=== PATIENT | male | born 1935 | race Caucasian/White ===

== ENCOUNTER → 2017-02-09 | Outpatient (CLI) | payer MEDICARE, OTHER ==
[~2017-02-09] VITALS: Ht 162.6 cm; Wt 77.6 kg
[~2017-02-09] MED LIST: ASPI325T28 PO; ATEN25TA PO; DOCU10CA PO; DULC10SU2 PR; FLUT1LOT; LIDOCAINE 2% INJ 100 MG/5 ML SDV (FOR ANES.) As Ordered ONE; LISI10TA4 PO; MAGN1TAB25 PO; MAGN200T3 PO; MILKSUS PO; NEUR100C PO; NORV5TAB PO; NS 1,000 ML IV SCH; PRAV40TA PO; PROPOFOL 200 MG/20 ML VIAL As Ordered ONE; PROS5TAB PO; PROT1TAB2 PO; RANI150C PO; REFR0.5D8 OP; SALI0.653; SENO8.6T2 PO; TYLE325T5 PO; ZOCO20TA PO; fentaNYL 100 MCG/2 ML INJECTION (J3010) As Ordered ONE
--- NOTE | 2017-02-09 10:42 | ROOR ---
Patient Name: Mayuri Wright Procedure Date: 02/09/2017 10:27 AM Date of : 1935 Age: 82 Room: [facility] Gender: Male Note Status: Finalized Procedure: Upper GI endoscopy + Biopsies Indications: Abnormal CT of the GI tract, Weight loss Providers: Dakota Hampton MD Referring MD: STEPHEN MICHAEL MD Requesting Provider: Medicines: Monitored Anesthesia Care Complications: No immediate complications. Procedure: Pre-Anesthesia Assessment: - The heart rate, respiratory rate, oxygen saturations, blood pressure, adequacy of pulmonary ventilation, and response to care were monitored throughout the procedure. The Endoscope was introduced through the mouth, and advanced to the second part of duodenum. The upper GI endoscopy was accomplished without difficulty. The patient tolerated the procedure well. Findings: The Z-line was regular and was found 35 cm from the incisors. Multiple biopsies were obtained with cold forceps for evaluation to rule out Jennings's Esophagus randomly at the gastroesophageal junction. A large hiatal hernia was present. No other significant abnormalities were identified in a careful examination of the stomach. The exam of the duodenum was otherwise normal. Impression: - Z-line regular, 35 cm from the incisors. - Large hiatal hernia. - Multiple biopsies were obtained at the gastroesophageal junction. - The examination was otherwise normal. Recommendation: - Patient has a contact number available for emergencies. The signs and symptoms of potential delayed complications were discussed with the patient. Return to normal activities tomorrow. Written discharge instructions were provided to the patient. - High fiber diet. - Discharge patient to home. - Continue present medications. - Follow an antireflux regimen. - Return to referring physician. - The findings and recommendations were discussed with the patient's family. Dakota Hampton MD Dakota Hampton MD 02/09/2017 10:42:16 AM This report has been signed electronically. Number of Addenda: 0 Note Initiated On: 02/09/2017 10:27 AM Estimated Blood Loss: Estimated blood loss: none.
[2017-02-09 11:05] VITALS: BP 147/79
== END | disposition home or self-care (01) ==
LOC: M OPP 09:03
PROVIDERS: ATTEND Internal Medicine Gastroenterology
DX: K29.50 Unspecified chronic gastritis without bleeding (principal); K44.9 Diaphragmatic hernia without obstruction or gangrene; R63.4 Abnormal weight loss; I71.4 Abdominal aortic aneurysm, without rupture; I10 Essential (primary) hypertension; E78.00 Pure hypercholesterolemia, unspecified; I25.6 Silent myocardial ischemia; I99.9 Unspecified disorder of circulatory system; I25.10 Atherosclerotic heart disease of native coronary artery without angina pectoris; Z86.73 Personal history of transient ischemic attack (TIA), and cerebral infarction without residual deficits; Z79.51 Long term (current) use of inhaled steroids; Z79.899 Other long term (current) drug therapy; Z79.82 Long term (current) use of aspirin; Z88.5 Allergy status to narcotic agent; Z88.8 Allergy status to other drugs, medicaments and biological substances
CPT/HCPCS: 43239; 88305; 99156; J3010

== ENCOUNTER → 2017-02-28 | Outpatient (CLI) | payer MEDICARE, OTHER ==
[~2017-02-28] MED LIST changes: +ISOVUE-370 76% 100ML VIAL (Q9967) As Ordered ONE; -LIDOCAINE 2% INJ 100 MG/5 ML SDV (FOR ANES.) As Ordered ONE; -NS 1,000 ML IV SCH; -PROPOFOL 200 MG/20 ML VIAL As Ordered ONE; -fentaNYL 100 MCG/2 ML INJECTION (J3010) As Ordered ONE
--- NOTE | 2017-03-01 07:58 | REP ---
CT angiogram chest and abdomen with IV contrast: History: Follow-up thoracic aortic aneurysm. Comparison study: We are attempting to retrieve prior studies from [facility]. An addendum report can be issued when they are retrieved. CT contrast dose: 100 ml of Isovue [address] technique: Helical scanning is acquired and 3 mm axial images are reformatted. Coronal and sagittal multiplanar re-formation images are generated and reviewed. Maximal intensity projection images are generated in sagittal and coronal imaging planes and a 3-D surface rendered color re-formation is generated. Nonvascular CT findings: There are some linear pulmonary parenchymal fibrotic changes in the right lower lobe. There is a small sliding-type hiatal hernia. There are granulomatous calcifications scattered about the spleen. There is a small accessory splenule. There is a 3.0 cm cyst in the lower pole of the left kidney. CT angiographic findings: There is heavy diffuse atherosclerotic irregularity. The thoracic aorta is quite tortuous. The aortic root measures 4.1 cm in AP dimension at the level of the right main pulmonary artery. Proximal descending thoracic aorta measures 2.7 cm. There is a saccular eccentric thoracic aortic aneurysm projecting caudally from the inferior margin of the distal aortic arch. This measures 5.2 cm x 4.0 cm x 5.4 cm anteroposterior by cranial to caudal by medial to lateral respectively. This appears to be a true aneurysm with intimal calcification surrounding it. There is extensive irregular atherosclerotic plaquing in the aortic arch. There are two great vessels originating from the aortic arch, bovine arch configuration. There is no evidence to suggest rupture or mediastinal hematoma. The aneurysm produces mass effect on the left main pulmonary artery which is compressed and displaced caudally and somewhat anteromedially by the aneurysm. There is also mild saccular aneurysmal dilation of the posterior wall of the upper abdominal aorta at the diaphragmatic hiatus at the origin of the renal arteries. The aorta at this level measures 3.4 cm anterior to posterior by 3.0 cm medial to lateral. There is an infrarenal abdominal aortic aneurysm as well measuring 4.3 cm anterior to posterior by 3.4 cm medial to lateral. This is an eccentric dilation of the posterior wall of the abdominal aorta morphologically. 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 Bovine arch configuration. Signed by Edgardo Castillo MD 03/01/2017 08:27 A
== END ==
LOC: M RAD 08:31
DX: I71.2 Thoracic aortic aneurysm, without rupture (principal)
CPT/HCPCS: 71275; Q9967

== ENCOUNTER → 2018-04-07 | Outpatient (CLI) | payer MEDICARE, OTHER | LOC: M RAD 07:13 | DX: N18.3 Chronic kidney disease, stage 3 (moderate) (principal); I71.4 Abdominal aortic aneurysm, without rupture | CPT/HCPCS: 76775 ==

== ENCOUNTER → 2020-11-10 | Outpatient (CLI) | payer MEDICARE, OTHER ==
[~2020-11-10] MED LIST changes: +ASPI-527 PO; -ASPI325T28 PO; -ISOVUE-370 76% 100ML VIAL (Q9967) As Ordered ONE; +LISI10TA22 PO; -LISI10TA4 PO; -MAGN1TAB25 PO; +MAGN1TAB26 PO; +MILK120011 PO; -MILKSUS PO; +SALI0.6528; -SALI0.653; -SENO8.6T2 PO; +SENO8.6T5 PO
--- NOTE | 2020-11-10 11:56 | REP ---
INDICATION: DYSPHONIA. COMPARISON: Comparison chest x-ray September 16, 2009. Comparison chest CT study is from February 28, 2017. TECHNIQUE: Two views.. FINDINGS: Right hemidiaphragm is somewhat elevated. This is a little more prominent than on the 2008 prior study but not new. Pleural angles are sharp. Heart size is unchanged. The thoracic aorta is again noted to be tortuous and calcific. This appears more prominent. Question mediastinal fullness. I note that CT study from February 28, 2017 shows a thoracic aortic aneurysm involving the aortic arch. In comparison with hand crown pouncer view for that CT study, mediastinum is not felt to be changed from 2017. There are degenerative changes in the thoracic spine. Pulmonary vasculature is not increased. IMPRESSION: Elevated right hemidiaphragm. This patient has a known transverse aortic arch aneurysm. Mediastinal fullness similar to CT study from 2017. The aneurysm could be better evaluated by CT with IV contrast. <Electronically signed by Chapincito Castillo > 11/10/20 [id number]
== END ==
LOC: M RAD 11:05
PROVIDERS: ATTEND Specialist
DX: R49.0 Dysphonia (principal)